=== PATIENT | female | born 1970 ===

== ENCOUNTER 2017-02-01 16:34 | Emergency (ER) | payer MEDICAID ==
[2017-02-01 16:57] VITALS: BP 116/86; PULSE 66; RESP 19; TEMP 98.5; O2SAT 99
--- NOTE | 2017-02-01 17:13 | ED PDOC ---
Lower Extremity Pain/Injury Time Seen by Provider: 02/01/17 17:02 Chief Complaint (Nursing): Lower Extremity Problem/Injury Chief Complaint (Provider): right knee pain History Per: Patient Additional Complaint(s): 38-year-old female presents to emergency department for evaluation of right knee pain that has been ongoing for 3 months. Patient denies fall or trauma. Tylenol has not helped the pain. Patient is able to walk but has pain when doing so. She states the pain is at its worst when she walks up and down stairs and better when she is resting. PMD: [facility] Past Medical History Reviewed: Historical Data, Nursing Documentation, Vital Signs Vital Signs: Last Vital Signs Temp 98.5 F 02/01/17 16:54 Pulse 66 02/01/17 16:54 Resp 19 02/01/17 16:54 BP 116/86 02/01/17 16:54 Pulse Ox 99 02/01/17 16:54 - Medical History PMH: Diabetes, Hypercholesterolemia, Hypothyroidism - Surgical History Surgical History: Cholecystectomy, (x1) Other surgeries: hysterectomy - Family History Family History: States: No Known Family Hx - Living Arrangements Living Arrangements: With Family - Social History Current smoker - smoking cessation education provided: No Alcohol: None Drugs: Denies - Home Medications Home Medications: Ambulatory Orders Medication Instructions Recorded Levothyroxine [Synthroid] 75 mg PO DAILY 11/12/15 Metformin ER [Glucophage XR] 500 mg PO BID 11/12/15 Pravastatin Sodium [Pravastatin 10 mg PO DAILY 11/12/15 Sodium] Dicyclomine [Bentyl] 20 mg PO Q12 PRN #20 tab 11/13/15 Ibuprofen [Motrin] 600 mg PO Q6 PRN #15 tab 02/01/17 - Allergies Allergies/Adverse Reactions: Allergies Allergy/AdvReac Type Severity Reaction Status Date / Time Sulfa (Sulfonamide Allergy RASH Verified 02/01/17 16:54 Antibiotics) Wells Criteria for PE - Wells Criteria for Pulmonary Embolism Clinical Signs and Symptoms of DVT: No P.E is #1 Diagnosis, or Equally Likely: No Heart Rate >100: No Immobilization at least 3 days;Surgery previous 4 weeks: No Previous, objectively diagnosed PE or DVT: No Hemoptysis: No Malignancy w/treatment within 6 months, or palliative: No Total Score: 0 Review of Systems ROS Statement: Except As Marked, All Systems Reviewed And Found Negative Musculoskeletal: Positive for: Other (right knee pain for the past 3 months, no trauma or injury) Physical Exam - Reviewed Nursing Documentation Reviewed: Yes Vital Signs Reviewed: Yes - Physical Exam Appears: Positive for: Well, Non-toxic, No Acute Distress Skin: Negative for: Rash Eye Exam: Positive for: Normal appearance Extremity: Positive for: Other (Full range of motion of the right knee with pain , mild tenderness to patellar region of the right knee, no calf tenderness or swelling, normal distal sensation right lower extremity) Neurologic/Psych: Positive for: Alert, Oriented - ECG O2 Sat by Pulse Oximetry: 99 Pulse Ox Interpretation: Normal - Other Rad right knee x-ray X-Ray: Interpreted by Me, Viewed By Me X-Ray Interpretation: no fx, no dis Medical Decision Making Medical Decision Makin46 year old with right knee pain Plan: X-ray right knee Pain meds declined Motrin helped the pain. Patient was given knee immobilizer and prescription for Motrin. She has follow- up at clinic on February 10. Procedures - Splinting Location: right knee Pre-Made Type: knee immobilizer Pre-Proc Neuro Vasc Exam: normal Post-Proc Neuro Vasc Exam: normal Disposition - Clinical Impression Clinical Impression: Knee pain - Patient ED Disposition Is Patient to be Admitted: No Counseled Patient/Family Regarding: Studies Performed, Diagnosis, Need For Followup, Rx Given - Disposition Referrals: [facility] [Outside] Disposition: Routine/Home Disposition Time: 18:45 Condition: STABLE Additional Instructions: Ice, rest and elevate affected area. Take rx meds as directed as needed for pain. Follow up as scheduled with clinic on February 10. Prescriptions: Ibuprofen [Motrin] 600 mg PO Q6 PRN #15 tab PRN Reason: Pain, Moderate (4-7) Instructions: Knee Pain (ED), Knee Immobilizer (ED) Print Language: FAROESE
--- NOTE | 2017-02-02 08:50 | RAD ---
PROCEDURE: Right Knee Radiographs. HISTORY: pain for 3 months COMPARISON: None. FINDINGS: BONES: Normal. No fracture. JOINTS: Normal. No osteoarthritis. JOINT EFFUSION: None. OTHER FINDINGS: None. IMPRESSION: No evidence of acute fracture or dislocation
== END 2017-02-01 18:50 | disposition home or self-care (01) ==
LOC: H.ER 16:34
DX: M25.561 Pain in right knee (principal); E03.9 Hypothyroidism, unspecified; E11.9 Type 2 diabetes mellitus without complications; E78.00 Pure hypercholesterolemia, unspecified; Z79.84 Long term (current) use of oral hypoglycemic drugs

== ENCOUNTER 2018-04-30 14:32 | Observation (INO) | payer MEDICAID ==
[2018-04-30 14:32] VITALS: BMI 29.6
[2018-04-30 16:41] LABS: BASO # 0.1 K/uL (0.0-0.2); BASO % 1.2 % (0.0-2.0); EOS # 0.3 K/uL (0.0-0.7); EOS % 3.2 % (0.0-4.0); HEMOGLOBIN 13.4 g/dL (12.0-16.0); LYMPH # 3.5 K/uL (1.0-4.3); LYMPH % 35.3 % (20.0-40.0); MEAN CELL VOLUME 85.9 fl (81.0-99.0); MEAN CORPUSCULAR HEMOGLOBIN 28.8 pg (27.0-31.0); MEAN CORPUSCULAR HGB CONC 33.6 g/dL (33.0-37.0); MEAN PLATELET VOLUME 8.2 fl (7.2-11.7); MONO # 0.7 K/uL (0.0-0.8); MONO % 7.4 % (0.0-10.0); NEUT # 5.2 K/uL (1.8-7.0); NEUT % 52.9 % (50.0-75.0); NRBC % 0.2 % (0.0-0.0); RBC 4.64 Mil/uL (3.80-5.20); RED CELL DISTRIBUTION WIDTH 13.6 % (11.5-14.5); WHITE BLOOD COUNT 9.8 K/uL (4.8-10.8)
[2018-04-30 16:50] LABS: ALB/GLOB RATIO 1.2 (1.0-2.1); ALBUMIN 4.4 g/dL (3.5-5.0); ALT/SGPT 26 U/L (9-52); AST/SGOT 37 U/L (14-36); BLOOD UREA NITROGEN 12 mg/dl (7-17); CALCIUM 9.1 mg/dL (8.4-10.2); GFR AFRICAN-AMERICAN > 60; GFR NON-AFRICAN AMERICAN > 60
--- NOTE | 2018-04-30 17:27 | ED PDOC ---
HPI: General Adult Time Seen by Provider: 04/30/18 15:36 Chief Complaint (Nursing): Headache Chief Complaint (Provider): Elevated blood pressure, headache, chest pain History Per: Patient, [employer] ([address] [id number]) History/Exam Limitations: no limitations Current Symptoms Are (Timing): Still Present Additional Complaint(s): 47yo female with history of diabetes, thyroid disease, comes to ER for evaluation stating she was informed that she has hypertension. Patient reports she was evaluated earlier today prior to a scheduled surgery and was informed her blood pressure was elevated. She states upon returning home, she had mild chest pain and shortness of breath. Currently in the ER, patient states she has a mild headache, mild chest pain but denies any dizziness, shortness of breath, or weakness. She also denies any photophobia, nausea, vomiting, diarrhea, and offers no additional medical complaints. PMD: [facility] Past Medical History Reviewed: Historical Data, Nursing Documentation, Vital Signs Vital Signs: Last Vital Signs Temp 98.2 F 04/30/18 17:07 Pulse 75 04/30/18 17:07 Resp 15 04/30/18 17:07 BP 141/87 04/30/18 17:07 Pulse Ox 99 04/30/18 17:50 - Medical History PMH: Diabetes, Hypercholesterolemia, Hypothyroidism - Surgical History Surgical History: Cholecystectomy, (x1) Other surgeries: hysterectomy - Family History Family History: States: Unknown Family Hx - Home Medications Home Medications: Ambulatory Orders Medication Instructions Recorded Aspirin/Acetaminophen/Caffeine 1 each PO PRN PRN 04/30/18 [Excedrin Extra Strength Caplet] Atorvastatin [Lipitor] 40 mg PO HS 04/30/18 Famotidine [Pepcid] 20 mg PO DAILY 04/30/18 Levothyroxine Sodium [Levoxyl] 75 mcg PO DAILY 04/30/18 metFORMIN [glucOPHAGE] 500 mg PO Q12 04/30/18 - Allergies Allergies/Adverse Reactions: Allergies Allergy/AdvReac Type Severity Reaction Status Date / Time epinephrine Allergy palpitation Verified 04/30/18 10:36 Sulfa (Sulfonamide Allergy palpitation Verified 04/30/18 10:36 Antibiotics) Review of Systems ROS Statement: Except As Marked, All Systems Reviewed And Found Negative Constitutional: Negative for: Fever, Chills Cardiovascular: Positive for: Chest Pain. Negative for: Light Headedness Respiratory: Positive for: Shortness of Breath Gastrointestinal: Negative for: Vomiting Neurological: Positive for: Headache. Negative for: Weakness, Numbness, Dizziness Physical Exam - Reviewed Nursing Documentation Reviewed: Yes Vital Signs Reviewed: Yes - Physical Exam Appears: Positive for: Non-toxic, No Acute Distress Head Exam: Positive for: ATRAUMATIC, NORMAL INSPECTION, NORMOCEPHALIC Skin: Positive for: Warm, Dry Eye Exam: Positive for: Normal appearance, EOMI, PERRL. Negative for: Nystagmus Neck: Positive for: Normal, Supple Cardiovascular/Chest: Positive for: Regular Rate, Rhythm. Negative for: Murmur Respiratory: Positive for: Normal Breath Sounds Gastrointestinal/Abdominal: Positive for: Normal Exam, Soft. Negative for: Tenderness Back: Positive for: Normal Inspection Extremity: Positive for: Normal ROM. Negative for: Deformity Neurologic/Psych: Positive for: Alert, Oriented. Negative for: Motor/Sensory Deficits - Laboratory Results Result Diagrams: 04/30/18 16:30 04/30/18 16:30 - ECG O2 Sat by Pulse Oximetry: 99 (RA) Pulse Ox Interpretation: Normal Medical Decision Making Medical Decision Making: Impression: Elevated blood pressure, no formal diagnosis of hypertnesion Plan: -- Labs -- Chest x-ray -- Tylenol 650 mg PO Time: 1722 Chest x-ray FINDINGS: LUNGS: No active pulmonary disease. PLEURA: No significant pleural effusion identified, no pneumothorax apparent. CARDIOVASCULAR: Normal. OSSEOUS STRUCTURES: No significant finding. VISUALIZED UPPER ABDOMEN: Right upper quadrant surgical clips. OTHER FINDINGS: None. IMPRESSION: No active disease. Time: 1833 Given patient's history, she is high risk for cardiac arrhythmia. Patient to be admitted to [facility], FP resident aware. Scribe Attestation: Documented by Jaquelin Swain, acting as a scribe for Janae Powers MD. Provider Scribe Attestation: All medical record entries made by the Scribe were at my direction and personally dictated by me. I have reviewed the chart and agree that the record accurately reflects my personal performance of the history, physical exam, medical decision making, and the department course for this patient. I have also personally directed, reviewed, and agree with the discharge instructions and disposition. Disposition - Disposition Referrals: FAMILY PROVIDER,NO [Primary Care Provider] - Forms: [employer] (Mongolian)
--- NOTE | 2018-04-30 17:29 | RAD ---
Date of service: 04/30/2018 HISTORY: mild cp COMPARISON: No prior. FINDINGS: LUNGS: No active pulmonary disease. PLEURA: No significant pleural effusion identified, no pneumothorax apparent. CARDIOVASCULAR: Normal. OSSEOUS STRUCTURES: No significant finding. VISUALIZED UPPER ABDOMEN: Right upper quadrant surgical clips. OTHER FINDINGS: None. IMPRESSION: No active disease.
--- NOTE | 2018-04-30 19:05 | CP.PCM.HP ---
History of Present Illness - History of Present Illness History of Present Illness: Hx taken from patient Full code PMD: NHC 47 y/o F with pmhx of NIDDM, hypothyroidism and migraines presented to ED c/o chest pressure and HBP levels. As per patient she had preop labs earlier today for scheduled breast cyst removal when she was told that her BP was elevated. She states that then, she went home but has been feeling a pressure sensation that is localized to the substernal area, doesnt radiate, has improved since arrival to ER and mild headache. She denies hx of HTN in the past and denies feeling anxious. Patient has been taking her meds as prescribed. Denies palpitation or vomiting but admits nausea when she has the chest pressure. The patient states that the headache is mild and not associated with any other symptoms, different that her migraine headache. On arrival to ED her bp was slightly elevated but subsequent BP WNL. ED course: EKG: Normal sinus CXR: No active disease Trop x1 normal CBC/CMP unremarkable ASA 325 mg once Tylenol 650 mg once PMHx: Breast cyst, NIDDM, Hypothyroidism SxHx: Cholecystectomy, Hysterectomy, C/S SHx: Denies x3 FHx: Unknown Allergies: Epinephrine and Sulfas Present on Admission - Present on Admission Any Indicators Present on Admission: No Review of Systems - Review of Systems All systems: reviewed and no additional remarkable complaints except (Those described on HPI) Past Patient History - Infectious Disease Hx of Infectious Diseases: None - Past Social History Smoking Status: Never Smoked Alcohol: None Drugs: Denies - CARDIAC Hx Hypercholesterolemia: Yes - ENDOCRINE/METABOLIC Hx Hypothyroidism: Yes - GASTROINTESTINAL Hx Gastroesophageal Reflux: Yes - PSYCHIATRIC Hx Substance Use: No - SURGICAL HISTORY Hx Surgeries: Yes Hx Section: Yes Hx Cholecystectomy: Yes Hx Hysterectomy: Yes - ANESTHESIA Hx Anesthesia Reactions: No Meds Allergies/Adverse Reactions: Allergies Allergy/AdvReac Type Severity Reaction Status Date / Time epinephrine Allergy palpitation Verified 04/30/18 10:36 Sulfa (Sulfonamide Allergy palpitation Verified 04/30/18 10:36 Antibiotics) Physical Exam - Constitutional Appears: Non-toxic, No Acute Distress - Head Exam Head Exam: NORMAL INSPECTION - Eye Exam Eye Exam: EOMI, PERRL - ENT Exam ENT Exam: Mucous Membranes Moist - Neck Exam Neck exam: Positive for: Full Rom, Normal Inspection. Negative for: Tenderness , Thyromegaly - Respiratory Exam Respiratory Exam: Clear to Auscultation Bilateral, NORMAL BREATHING PATTERN. absent: Decreased Breath Sounds, Rales, Rhonchi, Wheezes, Respiratory Distress - Cardiovascular Exam Cardiovascular Exam: REGULAR RHYTHM, +S1, +S2. absent: Gallop, Systolic Murmur - GI/Abdominal Exam GI & Abdominal Exam: Normal Bowel Sounds, Soft. absent: Distended, Guarding, Rebound, Rigid - Extremities Exam Extremities exam: Positive for: normal capillary refill. Negative for: calf tenderness, pedal edema, tenderness - Neurological Exam Neurological exam: Alert, CN II-XII Intact, Normal Gait, Oriented x3 - Psychiatric Exam Psychiatric exam: Normal Affect, Normal Mood - Skin Skin Exam: Normal Color, Warm Results - Vital Signs Recent Vital Signs: Last Vital Signs Temp 98.2 F 04/30/18 17:07 Pulse 75 04/30/18 17:07 Resp 15 04/30/18 17:07 BP 141/87 04/30/18 17:07 Pulse Ox 99 04/30/18 18:34 - Labs Result Diagrams: 04/30/18 16:30 04/30/18 16:30 Labs: Laboratory Results - last 24 hr 04/30/18 04/30/18 04/30/18 16:30 16:30 16:30 WBC 9.8 RBC 4.64 Hgb 13.4 Hct 39.8 MCV 85.9 MCH 28.8 MCHC 33.6 RDW 13.6 Plt Count 360 MPV 8.2 Neut % (Auto) 52.9 Lymph % (Auto) 35.3 Angelina % (Auto) 7.4 Eos % (Auto) 3.2 Baso % (Auto) 1.2 Neut # (Auto) 5.2 Lymph # (Auto) 3.5 Angelina # (Auto) 0.7 Eos # (Auto) 0.3 Baso # (Auto) 0.1 Sodium 141 Potassium 4.4 Chloride 104 Carbon Dioxide 24 Anion Gap 17 BUN 12 Creatinine 0.5 L Est GFR ( Amer) > 60 Est GFR (Non-Af Amer) > 60 Random Glucose 107 H Calcium 9.1 Total Bilirubin 0.9 AST 37 H D ALT 26 Alkaline Phosphatase 59 Troponin I < 0.0120 Total Protein 8.1 Albumin 4.4 Globulin 3.6 Albumin/Globulin Ratio 1.2 Assessment & Plan - Assessment and Plan (Free Text) Assessment: 47 y/o F with PMhx of NIDDM and Hypothyroid admitted for CP to R/O ACS Atypical Chest pain to rule out ACS Acute VS WNL, no vomiting or radiation of the pain CBC, CMP, Trop, EKG, CXR all unremarkable at ER S/P Aspirin 325 mg and Tylenol 650 mg once Patient has Hx of GERD but denies any GI symptoms R/O Hypothyroidism vs MSK vs Anxiety(Patient didnt look anxious at the time of exam but symptoms and presentation mimic panic attack) F/U Trop Q8h x2 F/W Repeat EKG AM TSH, Hgba1c, D Dimers ordered Admits to Tele for Obs NIDDM without complications Chronic Unknown if controlled. Previous A1c on chart 3 y/a F/U HgbA1c C/W Metformin 500mg BID for now Diabetic diet Hypoglycemia protocol High blood pressure measurement Acute Slight Repeat BP in ER WNL Monitor fow now Hypothyroidism Chronic F/U TSH C/w Levothyroxine 75 mcg for now GERD Chronic C/W Pepcid PO DVT Prophylaxis Lovenox 40 mg HS
[2018-04-30] MEDS ORDERED: Glucagon Recombinant 1 mg Inj IM PRN (23:19)
[2018-04-30] MEDS ORDERED: Dextrose 50% SYRINGE Inj (50 ml) IV PRN (23:19)
[2018-05-01] MEDS ORDERED: Levothyroxine 75 MCG TAB PO SCH (06:30)
--- NOTE | 2018-05-01 12:34 | CARD ---
APPROVED REPORT Date of service: 04/30/2018 EKG Measurement Heart [id number] <Conclusion> Normal sinus rhythm Normal ECG
[2018-05-01 14:19] VITALS: BP 112/74; PULSE 74; RESP 20; TEMP 98.6; O2SAT 98
--- NOTE | 2018-05-01 17:41 | CP.PCM.DIS ---
Provider - Provider Date of Admission: 04/30/18 18:32 Attending physician: Delores Cao MD Time Spent in preparation of Discharge (in minutes): 15 Diagnosis - Discharge Diagnosis (1) Chest pain Status: Acute (2) Diabetes Status: Chronic (3) Elevated BP without diagnosis of hypertension Status: Acute Hospital Course - Lab Results Lab Results: Most Recent Lab Values WBC 9.8 K/uL (4.8-10.8) 04/30/18 16:30 RBC 4.64 Mil/uL (3.80-5.20) 04/30/18 16:30 Hgb 13.4 g/dL (12.0-16.0) 04/30/18 16:30 Hct 39.8 % (34.0-47.0) 04/30/18 16:30 MCV 85.9 fl (81.0-99.0) 04/30/18 16:30 MCH 28.8 pg (27.0-31.0) 04/30/18 16:30 MCHC 33.6 g/dL (33.0-37.0) 04/30/18 16:30 RDW 13.6 % (11.5-14.5) 04/30/18 16:30 Plt Count 360 K/uL (130-400) 04/30/18 16:30 MPV 8.2 fl (7.2-11.7) 04/30/18 16:30 Neut % (Auto) 52.9 % (50.0-75.0) 04/30/18 16:30 Lymph % (Auto) 35.3 % (20.0-40.0) 04/30/18 16:30 [place] % (Auto) 7.4 % (0.0-10.0) 04/30/18 16:30 Eos % (Auto) 3.2 % (0.0-4.0) 04/30/18 16:30 Baso % (Auto) 1.2 % (0.0-2.0) 04/30/18 16:30 Neut # (Auto) 5.2 K/uL (1.8-7.0) 04/30/18 16:30 Lymph # (Auto) 3.5 K/uL (1.0-4.3) 04/30/18 16:30 [place] # (Auto) 0.7 K/uL (0.0-0.8) 04/30/18 16:30 Eos # (Auto) 0.3 K/uL (0.0-0.7) 04/30/18 16:30 Baso # (Auto) 0.1 K/uL (0.0-0.2) 04/30/18 16:30 ESR 29 mm/hr (0-20) H 05/01/18 08:27 D-Dimer, Quantitative 59 ng/mlDDU (0-230) 04/30/18 20:23 Sodium 141 mmol/l (132-148) 04/30/18 16:30 Potassium 4.4 MMOL/L (3.6-5.0) 04/30/18 16:30 Chloride 104 mmol/L (98-107) 04/30/18 16:30 Carbon Dioxide 24 mmol/L (22-30) 04/30/18 16:30 Anion Gap 17 (10-20) 04/30/18 16:30 BUN 12 mg/dl (7-17) 04/30/18 16:30 Creatinine 0.5 mg/dl (0.7-1.2) L 04/30/18 16:30 Est GFR ( Amer) > 60 04/30/18 16:30 Est GFR (Non-Af Amer) > 60 04/30/18 16:30 POC Glucose (mg/dL) 121 mg/dL (65-110) H 05/01/18 06:58 Random Glucose 107 mg/dL (65-105) H 04/30/18 16:30 Hemoglobin A1c 6.7 % (4.2-6.5) H 04/30/18 20:23 Calcium 9.1 mg/dL (8.4-10.2) 04/30/18 16:30 Phosphorus 3.6 mg/dl (2.5-4.5) 04/30/18 20:23 Magnesium 2.0 MG/DL (1.6-2.3) 04/30/18 20:23 Total Bilirubin 0.9 mg/dl (0.2-1.3) 04/30/18 16:30 AST 37 U/L (14-36) H D 04/30/18 16:30 ALT 26 U/L (9-52) 04/30/18 16:30 Alkaline Phosphatase 59 U/L (38-126) 04/30/18 16:30 Troponin I < 0.0120 ng/mL (0.00-0.120) 05/01/18 08:27 Total Protein 8.1 G/DL (6.3-8.2) 04/30/18 16:30 Albumin 4.4 g/dL (3.5-5.0) 04/30/18 16:30 Globulin 3.6 gm/dL (2.2-3.9) 04/30/18 16:30 Albumin/Globulin Ratio 1.2 (1.0-2.1) 04/30/18 16:30 TSH 3rd Generation 1.87 mIU/ML (0.46-4.68) 04/30/18 20:23 - Hospital Course Hospital Course: 47 y/o F with pmhx of NIDDM, hypothyroidism and migraines presented to ED c/o chest pressure and HBP levels. EKG, CXR, CBC, CMP, Troponins x 3(Negative), D- Dimers unremarkable. ACS ruled out. Improvement in chest pressure and BP with aspirin 325 and Tylenol 650 mg. No antihypertensive medication to be initiated at this time. Patient counseled to check BP once a day at home or at pharmacy and log BP's to bring to follow up appointment. Patient has follow up on 2017 @ 15:20 w/ Dr. Livingston. Discharge Exam - Head Exam Head Exam: ATRAUMATIC, NORMAL INSPECTION, NORMOCEPHALIC - Eye Exam Eye Exam: EOMI, Normal appearance, PERRL Pupil Exam: NORMAL ACCOMODATION, PERRL - ENT Exam ENT Exam: Mucous Membranes Moist - Respiratory Exam Respiratory Exam: Clear to PA & Lateral, UNREMARKABLE. absent: Rales, Rhonchi, Wheezes, Respiratory Distress - Cardiovascular Exam Cardiovascular Exam: REGULAR RHYTHM, +S1, +S2. absent: Bradycardia, Tachycardia , Systolic Murmur - GI/Abdominal Exam GI & Abdominal Exam: Normal Bowel Sounds, Soft - Extremities Exam Extremities exam: normal inspection - Back Exam Back exam: absent: CVA tenderness (L), CVA tenderness (R) - Neurological Exam Neurological exam: Alert, Normal Gait, Oriented x3 - Psychiatric Exam Psychiatric exam: Normal Affect, Normal Mood - Skin Skin Exam: Dry, Intact, Normal Color Discharge Plan - Follow Up Plan Condition: FAIR Disposition: HOME/ ROUTINE Patient education suggested?: Yes Instructions: High Blood Pressure in Adults Additional Instructions: Patient has follow up on 05/08/2018 @ 15:20 w/ Dr. Livingston No antihypertensive medication to be initiated at this time Patient counseled to check BP once a day at home or at pharmacy and log BP's to bring to follow up appointment Referrals: FAMILY PROVIDER,NO [Family Provider] -
[2018-05-01] MEDS ORDERED: Enoxaparin 40 mg Syringe SC SCH (22:00)
== END 2018-05-01 12:30 | disposition home or self-care (01) ==
LOC: SUPCPDRO 14:32 → H.ER 14:32 → H.ERHOLD 18:32
PROVIDERS: ADMIT Family Medicine Geriatric Medicine; ATTEND Family Medicine Geriatric Medicine
DX: R07.89 Other chest pain (principal); R03.0 Elevated blood-pressure reading, without diagnosis of hypertension; K21.9 Gastro-esophageal reflux disease without esophagitis; Z79.82 Long term (current) use of aspirin; Z79.84 Long term (current) use of oral hypoglycemic drugs; Z90.49 Acquired absence of other specified parts of digestive tract; Z90.710 Acquired absence of both cervix and uterus; G43.909 Migraine, unspecified, not intractable, without status migrainosus; Z79.899 Other long term (current) drug therapy; E03.9 Hypothyroidism, unspecified; E11.9 Type 2 diabetes mellitus without complications; E78.00 Pure hypercholesterolemia, unspecified; F41.0 Panic disorder [episodic paroxysmal anxiety]
CPT/HCPCS: 71045; 80053; 81025; 82948; 83036; 83735; 84100; 84443; 84484; 85025; 85378; 85651; 93005; 99285; G0378

== ENCOUNTER 2018-05-08 06:47 | Day surgery (SDC) | payer MEDICAID ==
[2018-04-30 09:53] VITALS: BMI 29.6
[2018-04-30 10:26] VITALS: RESP 18
[2018-05-08] MEDS ORDERED: Lactated Ringer's 1,000 ML IV ONE (07:21)
--- NOTE | 2018-05-08 09:06 | CP.SDSHP ---
Same Day Surgery H & P - History Proposed Procedure: Left breast mass excision Pre-Op Diagnosis: Left breast mass, intraductal papilloma - Previous Medical/Surgical History Endocrine/Metabolic: Thyroid Disease, Diabetes Previous Surgical History: gallbladder, hysterectomy, - Allergies Allergies: Allergies epinephrine Allergy (Verified 04/30/18 10:36) palpitation Sulfa (Sulfonamide Antibiotics) Allergy (Verified 04/30/18 10:36) palpitation - Physical Exam Vital Signs: Vital Signs 05/08/18 05/08/18 05/08/18 07:14 07:16 07:36 Temperature 98.7 F Pulse Rate 73 73 68 Respiratory 18 18 Rate Blood Pressure 150/99 H 130/89 O2 Sat by Pulse 99 Oximetry Mental Status: Alert & Oriented x3 Neuro: WNL Heart: WNL Lungs: WNL GI: WNL - Impression Impression: 47yo F w/ Left breast mass, Intraductal Papilloma on previous biopsy , here for Excision of mass Pt. Evaluated Today:Candidate for Anesthesia & Procedure: Yes - Date & Time Date: 05/08/18 Time: 09:06 Short Stay Discharge - Short Stay Discharge Admitting Diagnosis/Reason for Visit: D24.2 Disposition: HOME/ ROUTINE Referrals: Ryan Lawrence MD [Staff Provider] - Instructions: Breast Surgical Biopsy Additional Instructions (Diet, Activity): Please follow up with Dr. 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
[2018-05-08] MEDS ORDERED: Propofol 10 mg/ml Inj (20 ML) ONE (09:19)
[2018-05-08] MEDS ORDERED: Midazolam 2 MG/2 ML VIAL ONE (09:19)
[2018-05-08] MEDS ORDERED: ceFAZolin IV 2 gm in Dextrose 2 GM/50 ML BAG IVPB ONE (09:21)
[2018-05-08] MEDS ORDERED: Oxycodone/Acetaminophen 5/325 mg Tab PO PRN (10:23)
--- NOTE | 2018-05-08 10:23 | PCM.SURG1 ---
Surgeon's Initial Post Op Note - Surgeon's Notes Surgeon: Dr. Ryan Lawrence [employer] Laborer: Erum Goldstein PGY-4; Colette Jamil PGY-2 Type of Anesthesia: General LMA Anesthesia Administered By: Dr. Adkins Pre-Operative Diagnosis: Left breast mass Operative Findings: See op report Post-Operative Diagnosis: Left breast mass Operation Performed: Excision of left breast mass Specimen/Specimens Removed: Left breast mass Estimated Blood Loss: EBL {In ML}: 2 Blood Products Given: N/A Drains Used: No Drains Post-Op Condition: Good Date of Surgery/Procedure: 05/08/18 Time of Surgery/Procedure: 10:23
[2018-05-08] MEDS ORDERED: Lactated Ringer's 1,000 ML IV PRN (10:27)
[2018-05-08] MEDS ORDERED: HYDROmorphone 0.5 mg/0.5 ml ISec IVP PRN (10:27)
[2018-05-08] MEDS ORDERED: HYDROmorphone 0.5 mg/0.5 ml ISec ONE (10:33)
[2018-05-08 14:30] VITALS: BP 126/76; TEMP 98
[2018-05-08 16:08] VITALS: PULSE 75; O2SAT 75
--- NOTE | 2018-05-09 08:52 | OP ---
Copied To: Erum Goldstein DO Attending MD: Ryan Lawrence MD PROCEDURE DATE: 05/08/2018 PREOPERATIVE DIAGNOSIS: Left breast mass. POSTOPERATIVE DIAGNOSIS: Left breast mass. PROCEDURE: Excision of left breast mass. SURGEON: Ryan Lawrence MD ASSISTANTS Erum Goldstein DO; and Colette Jamil DO INDICATION FOR PROCEDURE: This is a 47-year-old female with a palpable left breast mass. She had already undergone an ultrasound-guided biopsy of this, which showed intraductal papilloma. A surgical biopsy was recommended. DESCRIPTION OF PROCEDURE: The patient was taken to the operating room and placed on the operating table supine. After adequate sedation, the left chest was prepped and draped in the usual sterile fashion. A time-out was completed, verifying correct patient, procedure, site, positioning, and special equipment prior to beginning the procedure. An infra-areolar skin incision was made. The mass was dissected from surrounding tissue using sharp dissection with a scalpel. An approximately 1 cm lump was removed from just below the nipple. The cavity was palpated to confirm there were no additional abnormalities. Hemostasis was achieved using electrocautery. The nipple was repaired using 5-0 plain gut suture. The subcutaneous tissue immediately under the skin was approximated with a 4-0 Monocryl subcuticular suture. Dermabond was applied. The patient tolerated the procedure well and was taken to the postanesthesia care unit in stable condition. Erum Goldstein DO Ryan Lawrence MD DAGOBERTO
== END 2018-05-08 10:40 | disposition home or self-care (01) ==
LOC: H.OPSURG 06:47
PROVIDERS: ATTEND Specialist
DX: D24.2 Benign neoplasm of left breast (principal); E11.9 Type 2 diabetes mellitus without complications; Z88.2 Allergy status to sulfonamides; Z90.710 Acquired absence of both cervix and uterus
CPT/HCPCS: 19120; 82948; 88305; J0690; J1170; J2001; J2250; J2704; J3010; J7030; J7120

== ENCOUNTER 2018-06-12 18:06 | Emergency (ER) | payer MEDICAID ==
[2018-06-12 18:06] VITALS: BMI 29.6
[2018-06-12] MEDS ORDERED: Piperacillin/Tazobact 3.375 GM in Sodium Chloride 0.9% 100 ML IV STA (19:09)
--- NOTE | 2018-06-12 19:24 | ED PDOC ---
HPI: General Adult Time Seen by Provider: 06/12/18 18:55 Chief Complaint (Nursing): Breast Problem Chief Complaint (Provider): left breast pain History Per: Patient History/Exam Limitations: no limitations Onset/Duration Of Symptoms: Days (x1 month) Current Symptoms Are (Timing): Still Present Additional Complaint(s): Tiff Barboza is a 47 year old female, with a past medical history of diabetes and thyroid problems, who presents to the emergency department complaining of left breast pain associated with discharge onset for x1 week. Patient states x1 month ago she had a cyst removed from her left breast. After x3 weeks she went for the follow up and was told that discharge was normal. However, patient reports her breast is still discharging which prompted concern for ED visit today. She did not take any medication for pain. She denies any fever, chills or other medical complaints. PMD: Radha Livingston Past Medical History Reviewed: Historical Data, Nursing Documentation, Vital Signs Vital Signs: Last Vital Signs Temp 98.4 F 06/12/18 22:39 Pulse 65 06/12/18 22:39 Resp 14 06/12/18 22:39 BP 121/76 06/12/18 22:39 Pulse Ox 100 06/12/18 22:39 - Medical History PMH: Diabetes, Hypercholesterolemia, Hypothyroidism, Migraine Denies: Chronic Kidney Disease - Surgical History Surgical History: Cholecystectomy, (x1) - Family History Family History: States: Unknown Family Hx - Home Medications Home Medications: Ambulatory Orders Medication Instructions Recorded Atorvastatin [Lipitor] 40 mg PO HS 04/30/18 Levothyroxine Sodium [Levoxyl] 75 mcg PO DAILY 04/30/18 metFORMIN [glucOPHAGE] 500 mg PO Q12 04/30/18 Ciprofloxacin [Cipro] 500 mg PO BID #14 tab 06/12/18 Ibuprofen [Motrin] 600 mg PO Q6 #20 tab 06/12/18 - Allergies Allergies/Adverse Reactions: Allergies Allergy/AdvReac Type Severity Reaction Status Date / Time epinephrine Allergy palpitation Verified 04/30/18 10:36 Sulfa (Sulfonamide Allergy palpitation Verified 04/30/18 10:36 Antibiotics) Review of Systems ROS Statement: Except As Marked, All Systems Reviewed And Found Negative Constitutional: Negative for: Fever, Chills Skin: Positive for: Other (left breast pain and discharge) Physical Exam - Reviewed Nursing Documentation Reviewed: Yes Vital Signs Reviewed: Yes - Physical Exam Appears: Positive for: No Acute Distress Head Exam: Positive for: ATRAUMATIC, NORMAL INSPECTION, NORMOCEPHALIC Skin: Positive for: Normal Color, Warm, Dry Eye Exam: Positive for: Normal appearance, EOMI, PERRL Neck: Positive for: Painless ROM Cardiovascular/Chest: Positive for: Other (Left breast from 3 to 9 o'clock tenderness, erythema, induration and purulent drainage from the nipple) Respiratory: Negative for: Respiratory Distress Extremity: Positive for: Normal ROM (upper and lower extremities). Negative for : Deformity, Swelling Neurologic/Psych: Positive for: Alert, Oriented. Negative for: Motor/Sensory Deficits - Laboratory Results Result Diagrams: 06/12/18 19:55 06/12/18 19:55 - ECG O2 Sat by Pulse Oximetry: 98 (RA) Pulse Ox Interpretation: Normal Medical Decision Making Medical Decision Making: Time: 18:55 Initial Impression: Initial Plan: --VBG --CMP --CBC w/ differential --Morphine 2 mg IV --Motrin tab 600 mg PO --Vancomycin Inj 1 gm Sodium Chloride 0.9% 250 ml IV --Zosyn 3.375gm Sodium Chloride 0.9% 100 ml IV --Blood culture --Breast Unilateral Left [US] --Reevaluation 21:21 Breast Ultrasound FINDINGS: Breast: Heterogeneous echotexture in the area of surgery in the left breast. There appears to be some fluid at this location which could be due to hematoma or developing abscess and measures approximately 1.5 cm in maximum dimension. There is a 7 mm nodule at the 10:00 position in the left breast. IMPRESSION: 1. Heterogeneous echotexture in the area of surgery in the left breast. There appears to be some fluid at this location which could be due to hematoma or developing abscess and measures approximately 1.5 cm in maximum dimension. 2. There is a 7 mm nodule at the 10:00 position in the left breast. Recommend dedicated breast imaging for further evaluation. Pt underwent surgical consult, see resident notes. Pt stable for discharge at this time. RX for Cipro , as per Dr. bradshaw. Call office tomorrow for follow up Scribe Attestation: Documented by Surjit Vines, acting as a scribe for Nury Dwyer PA-C Provider Scribe Attestation: All medical record entries made by the Scribe were at my direction and personally dictated by me. I have reviewed the chart and agree that the record accurately reflects my personal performance of the history, physical exam, medical decision making, and the department course for this patient. I have also personally directed, reviewed, and agree with the discharge instructions and disposition. Disposition - Clinical Impression Clinical Impression: Abscess of breast - Patient ED Disposition Is Patient to be Admitted: No - Disposition Referrals: Radha Livingston MD [Primary Care Provider] - Disposition: Routine/Home Disposition Time: 23:25 Condition: STABLE Prescriptions: Ciprofloxacin [Cipro] 500 mg PO BID #14 tab Ibuprofen [Motrin] 600 mg PO Q6 #20 tab Instructions: Common Breast Problems Forms: [employer] ([place])
[2018-06-12 20:03] LABS: BASO # 0.1 K/uL (0.0-0.2); EOS # 0.3 K/uL (0.0-0.7); EOS % 2.5 % (0.0-4.0); HEMOGLOBIN 13.5 g/dL (12.0-16.0); LYMPH # 2.5 K/uL (1.0-4.3); LYMPH % 21.4 % (20.0-40.0); MEAN CELL VOLUME 86.5 fl (81.0-99.0); MEAN CORPUSCULAR HEMOGLOBIN 28.8 pg (27.0-31.0); MEAN CORPUSCULAR HGB CONC 33.3 g/dL (33.0-37.0); MONO # 0.7 K/uL (0.0-0.8); MONO % 5.9 % (0.0-10.0); NEUT # 8.2 K/uL (1.8-7.0); NEUT % 69.2 % (50.0-75.0); RBC 4.71 Mil/uL (3.80-5.20); RED CELL DISTRIBUTION WIDTH 13.6 % (11.5-14.5); WHITE BLOOD COUNT 11.8 K/uL (4.8-10.8)
[2018-06-12] MEDS ORDERED: Piperacillin/Tazobact 3.375 gm Inj IVPB ONE (20:03)
[2018-06-12] MEDS ORDERED: Vancomycin 1 g Inj ONE (20:03)
[2018-06-12 20:13] LABS: VENOUS BLOOD GAS BASE EXCESS 3.7 mmol/L (0.0-2.0); VENOUS BLOOD GAS PCO2 49 mmHg (40-60); VENOUS BLOOD GAS PO2 17 mm/Hg (30-55); VENOUS BLOOD PH 7.39 (7.32-7.43)
[2018-06-12 20:14] LABS: ALB/GLOB RATIO 1.3 (1.0-2.1); ALBUMIN 4.6 g/dL (3.5-5.0); ALT/SGPT 62 U/L (9-52); AST/SGOT 49 U/L (14-36); BLOOD UREA NITROGEN 7 mg/dl (7-17); CALCIUM 9.9 mg/dL (8.4-10.2); GFR NON-AFRICAN AMERICAN > 60
[2018-06-12 22:40] VITALS: BP 121/76; PULSE 65; RESP 14; TEMP 98.4
[2018-06-12] MEDS ORDERED: Gelatin Sponge 10 X 12.5 cm (Gelfilm Sterile Non Opthalmic) MM ONE (22:57)
[2018-06-12 23:25] VITALS: O2SAT 98
--- NOTE | 2018-06-13 13:06 | US ---
Date of service: 06/12/2018 HISTORY: Severe pain in the surgical site. Additional surgical history includes left breast biopsy October 2016. Benign results. History based on information provided by the patient at the time of the procedure. TECHNIQUE: Sonographic evaluation of the left breast was performed. FINDINGS: LEFT BREAST: Inflammatory changes include skin and subcutaneous tissues periareolar region, anatomic area of interest. Irregular fluid collection likely postoperative in nature. The periphery is hypervascular. Sub cm nodule 4 x 7 mm with vascular pattern suggestive of intramammary lymph node, 10 o'clock 3 cm from nipple Morphologically, unremarkable lymph node(s) IMPRESSION: Presumed postoperative changes/ retroareolar fluid collection and hypervascular periphery. Findings are likely postoperative. Follow-up to resolution recommended. BIRADS: BIRADS 3 Probably Benign Recommendation: Follow-up to resolution strongly recommended. Concordant results (preliminary interpretation) provided by [facility]. Procedure Completed: 20:30. Preliminary ([facility]) Report: Dictated and Authenticated: 21:21. Final Interpretation: 13:04 June 13, 2018.
== END 2018-06-12 23:25 | disposition home or self-care (01) ==
LOC: H.ER 18:06 → SUPCPDRO 18:06 → H.ER 23:25
DX: N61.1 Abscess of the breast and nipple (principal); E11.9 Type 2 diabetes mellitus without complications; N64.4 Mastodynia; Z79.84 Long term (current) use of oral hypoglycemic drugs; E03.9 Hypothyroidism, unspecified; E78.00 Pure hypercholesterolemia, unspecified
CPT/HCPCS: 76641; 80053; 82803; 85025; 87040; 96365; 96367; 99282; J2543